=== PATIENT | female | born 1965 | race Caucasian/White ===

== ENCOUNTER 2016-11-13 15:04 | Emergency (ER) | payer BC ==
[~2016-11-13] VITALS: Ht 172.7 cm; Wt 70.0 kg
[2016-11-13 15:29] VITALS: BP 135/89
[2016-11-13] MEDS ORDERED: PHENYLEPHRINE NASAL 1%, 15ML SPRAY ONE (15:58)
[2016-11-13] MEDS ORDERED: SILVER NITRATE STICK TP ONE ×2 (15:58→16:52)
[2016-11-13] MEDS ORDERED: OXYMETAZOLINE NASAL SPRAY 0.05%, 15ML ONE (15:58)
[2016-11-13] MEDS ORDERED: OXYMETAZOLINE NASAL SPRAY 0.05%, 15ML NAS ONE (16:00)
[2016-11-13] MEDS ORDERED: COCAINE TOPICAL SOLN 4%, 4ML ONE (16:13)
[2016-11-13] MEDS ORDERED: COCAINE TOPICAL SOLN 4%, 4ML TP ONE (16:30)
== END 2016-11-13 17:34 | disposition home or self-care (01) ==
LOC: ED 17:15
DX: R04.0 Epistaxis (principal)
CPT/HCPCS: 30901

== ENCOUNTER 2021-01-04 16:51 | Emergency (ER) | payer BC, OTHER ==
[~2021-01-04] VITALS: Ht 172.7 cm; Wt 76.3 kg
[2021-01-04 17:06] VITALS: BP 148/88
[2021-01-04] MEDS ORDERED: DIPH,PERTUSS(ACELL),TET VAC/PF 0.5 ML IM-VACC ONE ×2 (17:29→17:30)
[2021-01-04] MEDS ORDERED: LIDOCAINE-MPF 1%, 5ML ONE (17:29)
[2021-01-04] MEDS ORDERED: LIDOCAINE-MPF 1%, 5ML INFIL ONE (17:30)
--- NOTE | 2021-01-04 17:31 | NUR ---
SUMA PULLED FOR ERPA ADMIN. PT AT XRAY.
== END 2021-01-04 18:32 | disposition home or self-care (01) ==
LOC: ED 17:30
DX: S61.431A Puncture wound without foreign body of right hand, initial encounter (principal); W26.0XXA Contact with knife, initial encounter; Y93.89 Activity, other specified; Y92.009 Unspecified place in unspecified non-institutional (private) residence as the place of occurrence of the external cause; Y99.8 Other external cause status
CPT/HCPCS: 90471; 90715; 99283